=== PATIENT | female | born 1970 | race Asian ===

== ENCOUNTER 2019-04-17 12:46 | Day surgery (SDC) | payer BC ==
[2019-04-17] MEDS ORDERED: FENTAnyl 50 MCG/ML VIAL (16:09)
[2019-04-17] MEDS ORDERED: PROPOFOL 20 ML (16:09)
== END 2019-04-17 17:25 | disposition home or self-care (01) ==
LOC: GIL 12:46
DX: K92.1 Melena (principal); K64.8 Other hemorrhoids; K20.8 Other esophagitis
CPT/HCPCS: 43239; 88305; 88312